=== PATIENT | male | born 1955 | race Caucasian/White ===

== ENCOUNTER 2016-06-02 11:03 | Day surgery (SDC) | payer OTHER ==
[~2016-06-02] VITALS: Ht 188 cm; Wt 102.1 kg
[~2016-06-02 11:03] MED LIST: CENTRUM SILVER1 EAC1 PO; FLEXERIL10 MG PO; LISINOPRIL10 MG PO; OMEPRAZOLE40 M1 PO; OSTEO BI-FLEX1 EAC3 PO
== END 2016-06-02 14:02 | disposition home or self-care (01) ==
LOC: PAIN 11:03 → SDC 14:45
DX: M47.896 Other spondylosis, lumbar region (principal); M53.3 Sacrococcygeal disorders, not elsewhere classified; I10 Essential (primary) hypertension; K21.9 Gastro-esophageal reflux disease without esophagitis; F41.1 Generalized anxiety disorder; M19.90 Unspecified osteoarthritis, unspecified site
CPT/HCPCS: J1030; J2250; J3010; S0020

== ENCOUNTER 2016-06-16 12:47 | Day surgery (SDC) | payer OTHER ==
[~2016-06-16] VITALS: Ht 188 cm; Wt 102.1 kg
[2016-06-16] MEDS ORDERED: PERCOCET 5/31 TABLET PO (13:51)
== END 2016-06-16 15:30 | disposition home or self-care (01) ==
LOC: PAIN 12:47 → SDC 13:30 → PAIN 15:30
DX: M47.896 Other spondylosis, lumbar region (principal); M53.3 Sacrococcygeal disorders, not elsewhere classified; I10 Essential (primary) hypertension; F41.1 Generalized anxiety disorder; M19.90 Unspecified osteoarthritis, unspecified site; K21.9 Gastro-esophageal reflux disease without esophagitis
CPT/HCPCS: J1030; J2250; J3010; S0020

== ENCOUNTER → 2016-09-22 18:02 | Emergency (ER) | payer OTHER ==
[~2016-09-22] VITALS: Ht 188 cm; Wt 97.5 kg
[~2016-09-22 18:02] MED LIST changes: +PERCOCET 5/31 TABLET PO
[2016-09-22 18:17] VITALS: BP 114/82
== END | disposition left against medical advice (07) ==
LOC: EME 18:02
DX: M25.519 Pain in unspecified shoulder (principal); Z53.21 Procedure and treatment not carried out due to patient leaving prior to being seen by health care provider

== ENCOUNTER 2016-12-15 11:42 | Day surgery (SDC) | payer OTHER ==
[~2016-12-15] VITALS: Ht 188 cm; Wt 97.5 kg
[~2016-12-15 11:42] MED LIST changes: +COLACE100 MG PO; +HYDROCODON-ACE1 EAC7 PO; +LEXAPRO20 MG PO; +LINZESS290 MCG PO; +SENNA8.6 MG PO
== END 2016-12-15 13:36 | disposition home or self-care (01) ==
LOC: PAIN 11:42 → SDC 14:30 → PAIN 14:30
DX: M47.816 Spondylosis without myelopathy or radiculopathy, lumbar region (principal); M54.5 Low back pain; G89.29 Other chronic pain; M53.3 Sacrococcygeal disorders, not elsewhere classified; K21.9 Gastro-esophageal reflux disease without esophagitis; I10 Essential (primary) hypertension
CPT/HCPCS: J1030; J2250; J3010; S0020

== ENCOUNTER 2016-12-22 15:02 | Day surgery (SDC) | payer OTHER ==
[~2016-12-22] VITALS: Ht 188 cm; Wt 99.8 kg
[~2016-12-22 15:02] MED LIST changes: +FLOMAX0.4 MG PO; +NEURONTIN300 MG PO; +ZANAFLEX4 MG PO
== END 2016-12-22 16:30 | disposition home or self-care (01) ==
LOC: PAIN 15:02
DX: M47.816 Spondylosis without myelopathy or radiculopathy, lumbar region (principal); F41.9 Anxiety disorder, unspecified; M53.3 Sacrococcygeal disorders, not elsewhere classified; I10 Essential (primary) hypertension; K21.9 Gastro-esophageal reflux disease without esophagitis
CPT/HCPCS: J1030; J2250; J3010